=== PATIENT | female | born 1980 | race African-American/Black ===

== ENCOUNTER 2025-06-06 19:31 | Emergency (ER) | payer MEDICAID ==
[~2025-06-06] VITALS: Ht 167.6 cm; Wt 50.0 kg
[2025-06-06 19:43] VITALS: O2SAT 99
[2025-06-06] MEDS ORDERED: LIDOCAINE HCL 1% 20ML VIAL INFIL ONE (21:00)
[2025-06-06] MEDS: IBUPROFEN 600MG TABLET PO ONE (21:33)
[2025-06-06] MEDS: BACITRACIN ZINC OINT UDPKT TOP ONE (21:34)
[2025-06-06] MEDS ORDERED: IBUP-1455 MT (23:29)
[2025-06-06] MEDS ORDERED: BO1 TP (23:29)
[2025-06-06 23:38] VITALS: BP 112/77; PULSE 56; RESP 12; TEMP 37.3; O2SAT 100
== END 2025-06-07 00:03 | disposition home or self-care (01) ==
LOC: ER 19:31
DX: S61.512A Laceration without foreign body of left wrist, initial encounter (principal); Z79.899 Other long term (current) drug therapy; X78.9XXA Intentional self-harm by unspecified sharp object, initial encounter; Y93.89 Activity, other specified; Y92.89 Other specified places as the place of occurrence of the external cause; Y99.8 Other external cause status
CPT/HCPCS: 73110; 12002; 99283; J2003; Z7610 ×2